=== PATIENT | female | born 2000 | race African-American/Black ===

== ENCOUNTER 2025-07-05 07:57 | Emergency (ER) | payer OTHER ==
[~2025-07-05] VITALS: Ht 160 cm; Wt 81.5 kg
[2025-07-05 08:05] VITALS: TEMP 97.2
[2025-07-05 08:37] LABS: BASO # 0.1 10^3/uL (0.0-0.2); BASO % 0.9 % (0.0-1.0); EOS # 0.1 10^3/uL (0.0-0.5); EOS % 1.7 % (0.0-3.0); LYMPH # 1.7 10^3/uL (1.5-5.0); LYMPH % 28.3 % (24.0-44.0); MONO # 0.4 10^3/uL (0.0-0.8); MONO % 7.0 % (2.0-8.0); NEUTROPHILS # 3.6 10^3/uL (1.5-8.5); NEUTROPHILS % 61.9 % (36.0-66.0); PLATELET COUNT, AUTOMATED 366 10^3/uL (150-450)
[2025-07-05] MEDS ORDERED: ISOVUE-370 76% 100 ML VIAL As Ordered ONE (09:10)
[2025-07-05] MEDS ORDERED: HOME MED LIST COMPLETE! XX SCH (09:10)
[2025-07-05 09:13] LABS: ALT/SGPT 18 U/L (7.0-40); AST/SGOT 23 U/L (<34); CALCIUM LEVEL 8.9 MG/DL (8.5-10.1); CARBON DIOXIDE LEVEL 28 MMOL/L (20-31); CHLORIDE LEVEL 105 MMOL/L (98-107); CK-MB VALUE MASS 2.8 NG/ML (<3.6); CREATININE FOR GFR 0.81 MG/DL (0.55-1.30); GLOMERULAR FILTRATION RATE > 90.0 (>60); POTASSIUM SERUM 4.1 MMOL/L (3.5-5.1); SODIUM LEVEL 141 MMOL/L (136-145)
[2025-07-05 09:15] VITALS: BP 129/76
[2025-07-05 09:15] LABS: FREE T4 1.10 NG/DL (0.89-1.76)
[2025-07-05 09:26] LABS: CPK CREATINE PHOSPHOKINASE 244 U/L (34-145); MB/CK RELATIVE INDEX 1.14 (< OR =4)
[2025-07-05 09:27] VITALS: O2SAT 98
== END 2025-07-05 10:55 | disposition home or self-care (01) ==
LOC: M ED 07:57
DX: R07.9 Chest pain, unspecified (principal)
CPT/HCPCS: 36415; 71045; 71275; 80048; 80076; 82550; 82553; 83690; 84439; 84443; 84484; 85025; 85652; 93005; 93041; 94760; 99285; Q9967